=== PATIENT | female | born 1965 | race Caucasian/White ===

== ENCOUNTER 2016-11-25 15:31 | Emergency (ER) | payer OTHER ==
--- NOTE | 2016-11-25 15:48 | ER Document Report ---
ED Medical Screen (RME) - General Stated Complaint: LEG PAIN Mode of Arrival: Ambulatory Information source: Patient Notes: 51 y/o F presents to ED c/o intermittent pain and tingling to left anteriolateral leg. Also states sometimes feels cold. Denies swelling or color changes. Reports had injections to lower back approximately 2 weeks ago prior to symptoms starting. I have greeted and performed a rapid initial assessment of this patient. A comprehensive ED assessment and evaluation of the patient, analysis of test results and completion of the medical decision making process will be conducted by additional ED providers. TRAVEL OUTSIDE OF THE [place] IN LAST 30 DAYS: No - Related Data Allergies/Adverse Reactions: No Known Allergies Allergy (Unverified 11/25/16 15:44) Physical Exam - Vital signs Vitals: Temp Pulse Resp BP Pulse Ox 98.0 F 69 16 120/74 96 11/25/16 15:41 11/25/16 15:41 11/25/16 15:41 11/25/16 15:41 11/25/16 15:41 - General General appearance: Appears well, Alert In distress: None - Respiratory Respiratory status: No respiratory distress - Neurological Neuro grossly intact: Yes Cognition: Normal Orientation: AAOx4 [place] Coma Scale Eye Opening: Spontaneous [place] Coma Scale Verbal: Oriented [place] Coma Scale Motor: Obeys Commands [place] Coma Scale Total: 15 Motor strength normal: LUE, RUE, LLE, RLE Sensory: Normal Course - Vital Signs Vital signs: Temp Pulse Resp BP Pulse Ox 98.0 F 69 16 120/74 96 11/25/16 15:41 11/25/16 15:41 11/25/16 15:41 11/25/16 15:41 11/25/16 15:41
--- NOTE | 2016-11-25 18:48 | ER Document Report ---
ED General - General Chief Complaint: Leg Pain Stated Complaint: LEG PAIN Time seen by provider: 18:47 Mode of Arrival: Ambulatory Information source: Patient Notes: This is a 51-year-old female with a history of low back pain with radiculopathy (status post spinal injections in the past and also Tish). Patient has been experiencing left lower extremity pain with coldness and it called [facility] and she was referred to the ER. TRAVEL OUTSIDE OF THE [place] IN LAST 30 DAYS: No - HPI Onset: Last week Onset/Duration: Gradual Quality of pain: Dull Severity: Moderate Pain Level: 3 Associated symptoms: denies: Chills, Nonproductive cough, Productive cough, Fever, Leg swelling, Shortness of breath Exacerbated by: Movement Relieved by: Denies Similar symptoms previously: Yes Recently seen / treated by doctor: Yes - Related Data Allergies/Adverse Reactions: No Known Allergies Allergy (Unverified 11/25/16 15:44) Past Medical History - General Information source: Patient - Social History Smoking Status: Current Every Day Smoker Cigarette use (# per day): Yes - 1 pack per day smoker Chew tobacco use (# tins/day): No Frequency of alcohol use: None Drug Abuse: None Lives with: Family Family History: Reviewed & Not Pertinent Patient has suicidal ideation: No Patient has homicidal ideation: No - Past Medical History Cardiac Medical History: Reports: None Pulmonary Medical History: Reports: None EENT Medical History: Reports: None Neurological Medical History: Reports: None Endocrine Medical History: Reports: None Renal/ Medical History: Reports: None. Denies: Hx Peritoneal Dialysis Malignancy Medical History: Reports: None GI Medical History: Reports: None Musculoskeltal Medical History: Reports Other - Back pain/radiculopathy Skin Medical History: Reports None Psychiatric Medical History: Reports: None Traumatic Medical History: Reports: None Infectious Medical History: Reports: None Past Surgical History: Reports: Other - Injections and back Review of Systems - Review of Systems Constitutional: denies: Chills, Fever EENT: No symptoms reported Cardiovascular: No symptoms reported Respiratory: No symptoms reported Gastrointestinal: No symptoms reported Genitourinary: No symptoms reported Female Genitourinary: No symptoms reported Musculoskeletal: See HPI Skin: No symptoms reported Hematologic/Lymphatic: No symptoms reported Neurological/Psychological: See HPI Physical Exam - Vital signs Vitals: Temp Pulse Resp BP Pulse Ox 98.0 F 69 16 120/74 96 11/25/16 15:41 11/25/16 15:41 11/25/16 15:41 11/25/16 15:41 11/25/16 15:41 Notes: Physical exam: GENERAL: 51-year-old female, alert and oriented 3, no acute distress HEAD: Atraumatic, normocephalic. EYES: Pupils equal round and reactive to light, extraocular movements intact, sclera anicteric, conjunctiva are normal. ENT: TMs normal, nares patent, oropharynx clear without exudates. Moist mucous membranes. NECK: Normal range of motion, supple without lymphadenopathy or JVD. LUNGS: Breath sounds clear to auscultation bilaterally and equal. No wheezes rales or rhonchi. HEART: Regular rate and rhythm without murmurs, rubs or gallops. ABDOMEN: Soft, normoactive bowel sounds. No tenderness to palpation. No guarding, no rebound. No masses appreciated. EXTREMITIES: Normal range of motion, no pitting or edema. No clubbing or cyanosis. Left lower extremity: Distal DP pulse intact. Distal cap refill good. Extremities warm. NEUROLOGICAL: Cranial nerves II through XII grossly intact. Normal speech, normal gait. PSYCH: Normal mood, normal affect. SKIN: Warm, Dry, normal turgor, no rashes or lesions noted. Course - Vital Signs Vital signs: Temp Pulse Resp BP Pulse Ox 98.0 F 69 16 120/74 96 11/25/16 15:41 11/25/16 15:41 11/25/16 15:41 11/25/16 15:41 11/25/16 15:41 - Laboratory Result Diagrams: 11/25/16 19:15 11/25/16 19:15 - Diagnostic Test Radiology reviewed: Image reviewed, Reports reviewed - Arterial Doppler shows no evidence of arterial blockage. Discussed results with Dr. Sandra Discharge - Discharge Clinical Impression: radiculopathy Condition: Stable Disposition: HOME, SELF-CARE Instructions: Oral Narcotic Medication ([facility]) Additional Instructions: As discussed: The vascular ultrasound showed good flow in the arteries of the left lower extremity and there was no evidence of blockages. Continue the gabapentin Take Percocet for breakthrough pain. Follow-up with Dr. Townsend and Dr. Feng at [place] Turned to the ER if there is any concerns that her pain is getting worse, worsening numbness or weakness in the extremity. Prescriptions: Oxycodone HCl/Acetaminophen [Percocet 5-325 mg Tablet] 1 - 2 tab PO ASDIR PRN # 25 tablet PRN Reason:
[2016-11-25 19:28] LABS: ABSOLUTE BASOPHILS # (AUTO) 0.1 10^3/uL (0.0-0.2); ABSOLUTE EOSINOPHILS # (AUTO) 0.2 10^3/uL (0.0-0.6); ABSOLUTE LYMPHOCYTES (AUTO) 2.6 10^3/uL (0.5-4.7); ABSOLUTE MONOCYTES (AUTO) 0.3 10^3/uL (0.1-1.4); ABSOLUTE NEUT (AUTO) 4.1 10^3/uL (1.7-8.2); BASOPHILS % (AUTO) 1.4 % (0-2); EOSINOPHILS % (AUTO) 2.9 % (0-6); HEMATOCRIT 39.8 % (36.0-47.0); HEMOGLOBIN 13.9 g/dL (12.0-15.5); HGB HCT DIFFERENCE 1.9; LYMPHOCYTES % (AUTO) 35.2 % (13-45); MEAN CORPUSCULAR HEMOGLOBIN 31.5 pg (27.0-33.4); MEAN CORPUSCULAR VOLUME 90 fl (80-97); MONOCYTES % (AUTO) 4.4 % (3-13); RED BLOOD COUNT 4.42 10^6/uL (3.72-5.28); RED CELL DISTRIBUTION WIDTH 12.6 % (11.5-14.0); SEGMENTED NEUTROPHILS % (AUTO) 56.1 % (42-78); WHITE BLOOD COUNT 7.3 10^3/uL (4.0-10.5)
[2016-11-25 19:34] LABS: PROTHROMBIN TIME 12.7 SEC (11.4-15.4)
[2016-11-25 19:40] LABS: ALANINE AMINOTRANSFERASE 19 U/L (9-52); ALBUMIN 4.3 g/dL (3.5-5.0); ALKALINE PHOSPHATASE 55 U/L (38-126); ANION GAP 11 (5-19); ASPARTATE AMINO TRANSFERASE 17 U/L (14-36); BILIRUBIN,TOTAL 0.4 mg/dL (0.2-1.3); BLOOD UREA NITROGEN 7 mg/dL (7-20); CALCIUM 9.8 mg/dL (8.4-10.2); CARBON DIOXIDE 23 mmol/L (22-30); CHLORIDE 105 mmol/L (98-107); CREATININE RESULT 0.63 mg/dL (0.52-1.25); GLUCOSE 85 mg/dL (75-110); SODIUM 139.2 mmol/L (137-145); TOTAL PROTEIN 6.5 g/dL (6.3-8.2)
[2016-11-25 20:49] VITALS: BP 113/81
--- NOTE | 2016-11-26 12:25 | XCELERA REPORT ---
[address] [address] Lower Extremity Arterial Evaluation Name: LAN MARINELLI Age: 51 yrs Gender: Female : 1965 Patient Status: Emergency Patient Location: ER Study Date: 11/25/2016 07:42 PM Procedure: A color flow and duplex scan of the lower extremity arteries was performed on the left with velocity and waveform anaylsis. 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 Left Side Arterial Evaluation Normal velocity, waveform and triphasic flow are present, from the Common Femoral artery to the Popliteal artery. Then Biphasic in the infrageniculate vessels. The ankle-brachial index was not done.. 0-19 % stenosis is noted at the Popliteal artery. Interpretation Summary Mild hemodynamically significant lesions in the left lower extremity only, on duplex imaging, at rest. : GONZALO MCDERMOTT > Femi Sandra
== END 2016-11-25 20:51 | disposition home or self-care (01) ==
LOC: ER 15:31
DX: M54.16 Radiculopathy, lumbar region (principal); M79.606 Pain in leg, unspecified; M54.5 Low back pain; F17.210 Nicotine dependence, cigarettes, uncomplicated
CPT/HCPCS: 36415; 80053; 85025; 85610; 93926; 99284

== ENCOUNTER 2017-02-19 00:29 | Emergency (ER) | payer OTHER ==
--- NOTE | 2017-02-19 01:37 | ER Document Report ---
ED General - General Chief Complaint: Abdominal Pain Stated Complaint: ABDOMINAL PAIN Time Seen by Provider: 02/19/17 01:34 Mode of Arrival: Ambulatory Information source: Patient TRAVEL OUTSIDE OF THE [place] IN LAST 30 DAYS: No - HPI Notes: Patient presents with report that she had back surgery on 01/13/17 in [place] without significant complication, but reports she has had significant constipation since that time. The patient states that she would go up to 7 days without having a bowel movement previously, but now states that she is gone 3 weeks. The patient reports that she was straining to have a bowel movement and was unsuccessful earlier with the exception of a small amount of liquid stool that seem to be coming around hard stool. The patient stated she had some crampy abdominal discomfort previously, but currently denies any abdominal pain whatsoever. She does report mild dysuria and urinary urgency. No fever or chills. No nausea or vomiting. No numbness or paresthesia. Patient reports her back pain has been fairly well controlled, although she has been taking narcotics. She was taking Colace previously, but Has since stopped. - Related Data Allergies/Adverse Reactions: No Known Allergies Allergy (Unverified 11/25/16 15:44) Past Medical History - General Information source: Patient - Social History Smoking Status: Current Every Day Smoker Smoking Education Provided: Yes Frequency of alcohol use: None Drug Abuse: None Lives with: Family Family History: Reviewed & Not Pertinent Renal/ Medical History: Denies: Hx Peritoneal Dialysis Past Surgical History: Reports: Other - Injections and back Review of Systems - Review of Systems Notes: REVIEW OF SYSTEMS: CONSTITUTIONAL : Denies fever, chills, or sweats. Denies recent illness. EENT: Denies eye, ear, throat, or mouth pain or symptoms. Denies nasal or sinus congestion or discharge. Denies throat, tongue, or mouth swelling or difficulty swallowing. CARDIOVASCULAR: Denies chest pain. Denies palpitations or racing or irregular heart beat. Denies ankle edema. RESPIRATORY: Denies cough, cold, or chest congestion. Denies shortness of breath, difficulty breathing, or wheezing. GASTROINTESTINAL: Denies nausea, vomiting, or diarrhea. Denies blood in vomitus, stools, or per rectum. Denies black, tarry stools. GENITOURINARY: Denies difficulty urinating, blood in urine, or discharge. FEMALE GENITOURINARY: Denies vaginal bleeding, heavy or abnormal periods, irregular periods. Denies vaginal discharge or odor. MUSCULOSKELETAL: Denies neck pain or stiffness. Denies joint pain or swelling. SKIN: Denies rash, lesions or sores. HEMATOLOGIC : Denies easy bruising or bleeding. LYMPHATIC: Denies swollen, enlarged glands. NEUROLOGICAL: Denies confusion or altered mental status. Denies passing out or loss of consciousness. Denies dizziness or lightheadedness. Denies headache. Denies weakness or paralysis or loss of use of either side. Denies problems with gait or speech. Denies sensory loss, numbness, or tingling. Denies seizures. PSYCHIATRIC: Denies anxiety or stress. Denies depression, suicidal ideation, or homicidal ideation. ALL OTHER SYSTEMS REVIEWED AND NEGATIVE. Dictation was performed using [employer] voice recognition software Physical Exam - Vital signs Vitals: Temp Pulse Resp BP Pulse Ox 98.6 F 89 15 113/78 97 02/19/17 00:44 02/19/17 00:44 02/19/17 00:44 02/19/17 00:44 02/19/17 00:44 - Notes Notes: PHYSICAL EXAMINATION: GENERAL: Well-appearing, well-nourished and in no acute distress. HEAD: Atraumatic, normocephalic. EYES: Pupils equal round and reactive to light, extraocular movements intact, conjunctiva are normal. ENT: Nares patent, oropharynx clear without exudates. Moist mucous membranes. NECK: Normal range of motion, supple without lymphadenopathy LUNGS: Breath sounds clear to auscultation bilaterally and equal. No wheezes rales or rhonchi. HEART: Regular rate and rhythm without murmurs ABDOMEN: Soft, nontender, nondistended abdomen. No guarding, no rebound. No masses appreciated. Female : deferred Musculoskeletal: Normal range of motion, no pitting or edema. No cyanosis. Mild lower back pain, patient states this is very much improved. NEUROLOGICAL: Cranial nerves grossly intact. Normal speech, normal gait. Normal sensory, motor exams. No saddle anesthesia. PSYCH: Normal mood, normal affect. SKIN: Warm, Dry, normal turgor, no rashes or lesions noted. Rectal exam patient is heme-negative with hard stool high in the vault. No evidence for fissure or hemorrhoids. During the exam the stool was loosened up and progressed, but patient was intolerant of a full disimpaction. Course - Re-evaluation Re-evalutation: 02/19/17 03:57 After the rectal exam, the patient was able to have a large bowel movement with significant relief. Urine culture was obtained which is pending. Patient was given Bactrim and magnesium citrate by mouth. Repeat abdominal exam again was nontender. Patient felt stable for discharge. There is mild dehydration noted. No clinical suggestion for bowel obstruction. No evidence for GI bleed. - Vital Signs Vital signs: Temp Pulse Resp BP Pulse Ox 98.2 F 87 20 109/68 100 02/19/17 01:41 02/19/17 01:41 02/19/17 01:41 02/19/17 01:41 02/19/17 01:41 - Laboratory Laboratory results interpreted by me: 02/19/17 02:30 Urine Ketones 20 H Urine Bilirubin SMALL H Urine Urobilinogen 4.0 H Ur Leukocyte Esterase MODERATE H Discharge - Discharge Clinical Impression: Slow transit constipation, Dehydration Urinary tract infection Qualifiers: Urinary tract infection type: site unspecified Hematuria presence: without hematuria Qualified Code(s): N39.0 - Urinary tract infection, site not specified Condition: Stable Instructions: Constipation ([facility]), Trimethoprim-Sulfa ([facility]), Urinary Tract Infection ([facility]) Additional Instructions: Drink plenty fluids. Return to the ED in case of severe abdominal pain, vomiting, fever. Take one third bottle of magnesium citrate every 6 hours as needed for constipation. Prescriptions: Polyethylene Glycol 3350 [Miralax] 1 cap PO DAILY #527 powder Sulfamethoxazole/Trimethoprim [Bactrim Ds Tablet] 1 each PO BID #14 tablet
[2017-02-19] MEDS ORDERED: ALPRAZOLAM 0.5 MG TABLET PO ONE (02:04)
[2017-02-19 03:04] LABS: APPEARANCE,URINE SLIGHTLY-CLOUDY; BILIRUBIN,URINE SMALL (NEGATIVE); CALCIUM OXALATE CRYSTALS,URINE FEW /HPF; GLUCOSE, URINE NEGATIVE (NEGATIVE); KETONES,URINE 20 mg/dL (NEGATIVE); LEUKOCYTE ESTERASE,URINE MODERATE (NEGATIVE); NITRITE,URINE NEGATIVE (NEGATIVE); PROTEIN,URINE NEGATIVE (NEGATIVE); URINE SPECIFIC GRAVITY 1.032
[2017-02-19] MEDS ORDERED: MAGNESIUM CITRATE 296 ML BOTTLE PO ONE (03:26)
[2017-02-19] MEDS ORDERED: SULFAMETHOXAZOLE/TRIMETHOPRIM 800-160 MG TABLET PO ONE (03:53)
[2017-02-19 05:03] VITALS: BP 110/77
== END 2017-02-19 04:30 | disposition home or self-care (01) ==
LOC: ER 00:29
DX: K59.00 Constipation, unspecified (principal); E86.0 Dehydration; N39.0 Urinary tract infection, site not specified; F17.200 Nicotine dependence, unspecified, uncomplicated
CPT/HCPCS: 99284; 87086; 81001; J3490